=== PATIENT | female | born 1980 | race Native Hawaiian/Other Pacific Islander ===

== ENCOUNTER 2018-03-13 13:34 | Emergency (ER) | payer SELFPAY ==
[2018-03-13 13:47] VITALS: BP 141/80
[2018-03-13 14:30] LABS: Bilirubin,Urine NEG (Negative); Color,Urine Red (Yellow); Urobilinogen,Urine < 2.0 mg/dL (<2.0)
[2018-03-13 14:31] LABS: Basophils # (Auto) 0.1 K/mm3 (0.0-0.1); Basophils % (Auto) 0.7 % (0.0-1.8); Eosinophils # (Auto) 0.2 K/mm3 (0.0-0.4); Hematocrit 36.2 % (30.3-42.9); Hemoglobin 12.3 gm/dl (10.1-14.3); Lymphocytes # (Auto) 3.6 K/mm3 (1.2-5.4); Lymphocytes % (Auto) 23.4 % (13.4-35.0); Mean Corpuscular HGB Conc 34 % (30-34); Mean Corpuscular Hemoglobin 31 pg (28-32); Mean Corpuscular Volume 90 fl (79-97); Monocytes # (Auto) 0.8 K/mm3 (0.0-0.8); Monocytes % (Auto) 5.4 % (0.0-7.3); Platelet Count 317 K/mm3 (140-440); Red Cell Distribution Width 14.4 % (13.2-15.2)
[2018-03-13 14:32] LABS: Blood,Urine MOD (Negative)
[2018-03-13 14:39] LABS: RBC,Urine > 182.0 /HPF (0.0-6.0); WBC,Urine > 182.0 /HPF (0.0-6.0)
[2018-03-13 15:00] LABS: Basophils # (Auto) 0.1 K/mm3 (0.0-0.1); Basophils % (Auto) 0.7 % (0.0-1.8); Eosinophils # (Auto) 0.1 K/mm3 (0.0-0.4); Hematocrit 34.7 % (30.3-42.9); Hemoglobin 11.7 gm/dl (10.1-14.3); Lymphocytes # (Auto) 3.2 K/mm3 (1.2-5.4); Lymphocytes % (Auto) 22.3 % (13.4-35.0); Mean Corpuscular HGB Conc 34 % (30-34); Mean Corpuscular Hemoglobin 31 pg (28-32); Mean Corpuscular Volume 91 fl (79-97); Monocytes # (Auto) 0.8 K/mm3 (0.0-0.8); Monocytes % (Auto) 5.8 % (0.0-7.3); Platelet Count 288 K/mm3 (140-440); Red Blood Count 3.82 M/mm3 (3.65-5.03); Red Cell Distribution Width 14.4 % (13.2-15.2)
[2018-03-13 15:10] LABS: INR 1.07 (0.87-1.13)
[2018-03-13 15:11] LABS: Partial Thromboplastin Time 27.3 Sec. (24.2-36.6)
[2018-03-13 15:41] LABS: Alanine Aminotransferase 16 units/L (7-56); BUN/Creatinine Ratio 13; Blood Urea Nitrogen 8 mg/dL (7-17); Calcium 8.6 mg/dL (8.4-10.2); Hemolysis Index 0
--- NOTE | 2018-03-13 16:04 | Emergency Department Report ---
ED General Adult HPI - General Chief complaint: Vaginal Bleeding Stated complaint: HEMORHAGE VAGINA Time Seen by Provider: 03/13/18 14:22 Source: family, spanish medical interpreter (Ms. Blunt) Mode of arrival: Ambulatory Limitations: Language Barrier - History of Present Illness Initial comments: She presents to emergency department with a chief complaint of heavy vaginal bleeding that started on March 04. Patient was seen at the clinic today and sent to emergency department for further evaluation. Patient denies any abdominal pain but does endorse having some cramping. Patient has no other complaints -: Gradual Radiation: non-radiation Severity scale (0 -10): 1 Quality: dull Consistency: constant Improves with: none Worsens with: none Associated Symptoms: denies other symptoms - Related Data Previous Rx's Medication Instructions Recorded Last Taken Type Ibuprofen [Motrin] 800 mg PO Q8HR #30 tablet 03/13/18 Unknown Rx Allergies Allergy/AdvReac Type Severity Reaction Status Date / Time No Known Allergies Allergy Unverified 03/13/18 13:47 ED Review of Systems ROS: Stated complaint: HEMORHAGE VAGINA Other details as noted in HPI Comment: All other systems reviewed and negative Constitutional: denies: chills, fever Eyes: denies: eye pain, eye discharge, vision change ENT: denies: ear pain, throat pain Respiratory: denies: cough, shortness of breath, wheezing Cardiovascular: denies: chest pain, palpitations Endocrine: no symptoms reported Gastrointestinal: denies: abdominal pain, nausea, diarrhea Genitourinary: denies: urgency, dysuria, discharge Musculoskeletal: denies: back pain, joint swelling, arthralgia Skin: denies: rash, lesions Neurological: denies: headache, weakness, paresthesias Psychiatric: denies: anxiety, depression Hematological/Lymphatic: denies: easy bleeding, easy bruising ED Past Medical Hx - Past Medical History Previous Medical History?: No - Surgical History Past Surgical History?: No - Social History Smoking Status: Never Smoker Substance Use Type: None - Medications Home Medications: Home Medications Medication Instructions Recorded Confirmed Last Taken Type Ibuprofen [Motrin] 800 mg PO Q8HR #30 tablet 03/13/18 Unknown Rx ED Physical Exam - General Limitations: Language Barrier General appearance: alert, in no apparent distress - Head Head exam: Present: atraumatic, normocephalic - Eye Eye exam: Present: normal appearance, PERRL, EOMI - ENT ENT exam: Present: mucous membranes moist - Neck Neck exam: Present: normal inspection - Respiratory Respiratory exam: Present: normal lung sounds bilaterally. Absent: respiratory distress, wheezes, rales, rhonchi - Cardiovascular Cardiovascular Exam: Present: regular rate, normal rhythm. Absent: systolic murmur, diastolic murmur, rubs, gallop - GI/Abdominal GI/Abdominal exam: Present: soft, normal bowel sounds. Absent: distended, tenderness - External exam: Present: other (deferred) Speculum exam: Present: other (deferred) Bi-manual exam: Present: other (deferred) - Extremities Exam Extremities exam: Present: normal inspection - Back Exam Back exam: Present: normal inspection - Neurological Exam Neurological exam: Present: alert, oriented X3, CN II-XII intact. Absent: motor sensory deficit - Psychiatric Psychiatric exam: Present: normal affect, normal mood - Skin Skin exam: Present: warm, dry, intact, normal color. Absent: rash ED Course Vital Signs 03/13/18 13:42 Temperature 98.5 F Pulse Rate 87 Respiratory 18 Rate Blood Pressure 141/80 O2 Sat by Pulse 98 Oximetry ED Medical Decision Making - Lab Data Result diagrams: 03/13/18 14:45 03/13/18 14:45 - Medical Decision Making Ms. Blunt help with translation of the results to the patient and the plan of care was discussed. Patient will receive high strength Motrin which will help constrict the arteries with the patient follow-up in the clinic for further treatment and possibly with [facility] Critical care attestation.: If time is entered above; I have spent that time in minutes in the direct care of this critically ill patient, excluding procedure time. ED Disposition Clinical Impression: DUB (dysfunctional uterine bleeding), Fibroids Disposition: - TO HOME OR SELFCARE Is pt being admited?: No Does the pt Need Aspirin: No Condition: Stable Instructions: Dysfunctional Uterine Bleeding (ED), Uterine Fibroids (ED) Additional Instructions: return if worse Prescriptions: Ibuprofen [Motrin] 800 mg PO Q8HR #30 tablet Referrals: PRIMARY CARE, [Primary Care Provider] - 3-5 Days RADHA DUGAN MD [Staff Physician] - 3-5 Days Time of Disposition: 17:10
[2018-03-13] MEDS ORDERED: TORADOL IM ONE (16:27)
--- NOTE | 2018-03-13 16:32 | Ultrasound Report ---
FINAL REPORT EXAM: US PELVIC COMPLETE HISTORY: DUB TECHNIQUE: Transabdominal grayscale imaging of the pelvis was performed. Comparison: Transvaginal study also performed today FINDINGS: The urinary bladder is moderately distended and unremarkable in appearance. The uterus measures 12.7 centimeters x 4.7 centimeters by 6 centimeters. Endometrial thickness measures 6.3 millimeters. Visualization detail of the uterus is limited. And there is an echogenic collection within the cervix that measures approximately 2.9 centimeters by 2.6 centimeters x 3.2 centimeters. Possible blood products. The ovaries are not well visualized on the transabdominal study. No free fluid is demonstrated in the pelvis. IMPRESSION: 1. Visualization detail of the uterus is limited on the transabdominal study. 2. The ovaries are not visualized on the transabdominal study. 3. Echogenic collection, possible blood products, in the cervix. The please see report of transvaginal study also performed today.
--- NOTE | 2018-03-13 16:39 | Ultrasound Report ---
FINAL REPORT EXAM: US TRANSVAGINAL HISTORY: dub TECHNIQUE: Transvaginal grayscale and color-flow imaging of the pelvis was performed. Comparison: Transabdominal study also performed today. FINDINGS: Endometrial thickness measures 10 millimeters. There is a small, approximately 5.8 millimeter, nonspecific cystic appearing structure in the anterior body of the uterus. An approximately 2 centimeter x 1.7 centimeter x 2 centimeter submucosal fibroid is demonstrated in the anterior body of the uterus. An approximately 1.7 centimeter x 1.3 centimeter x 1.8 centimeter probable fibroid is demonstrated in the region of the fundus. The previously demonstrated echogenic focus in the cervix and that was visualized on the transabdominal study is no longer demonstrated and may have represented blood products. The left ovary measures 3.5 centimeters x 2.2 centimeters x 3.3 centimeters and contains an approximately 1.6 centimeter dominant follicle. The right ovary measures 1.5 centimeters x 2 centimeters x 2.8 centimeters and is unremarkable in appearance. Flow is demonstrated in both ovaries utilizing color flow imaging. No free fluid is demonstrated in the pelvis. IMPRESSION: 1. Fibroid appearance of the uterus. 2. Small nonspecific cystic appearing structure in the anterior body of the uterus. Comparison with previous imaging studies would be helpful. 3. The probable blood products demonstrated in the cervix on the transabdominal study is not demonstrated with this study.
== END 2018-03-13 17:17 | disposition home or self-care (01) ==
LOC: ED 13:34
DX: N93.8 Other specified abnormal uterine and vaginal bleeding (principal); D21.9 Benign neoplasm of connective and other soft tissue, unspecified
CPT/HCPCS: 36415; 76830; 76856; 80053; 81001; 84702; 85025; 85610; 85730; 86850; 86900; 86901; 96372; 99284; J1885